=== PATIENT | male | born 1990 | race Caucasian/White ===

== ENCOUNTER 2019-07-21 12:16 | Emergency (ER) | payer OTHER ==
[~2019-07-21] VITALS: Ht 188 cm; Wt 99.8 kg
[2019-07-21] MEDS ORDERED: LOSA25 PO (12:50)
== END 2019-07-21 14:09 | disposition home or self-care (01) ==
LOC: ER 12:16
DX: G43.109 Migraine with aura, not intractable, without status migrainosus (principal); I10 Essential (primary) hypertension; Z91.048 Other nonmedicinal substance allergy status; Z79.899 Other long term (current) drug therapy
CPT/HCPCS: 99283